=== PATIENT | male | born 1975 | race Caucasian/White ===

== ENCOUNTER 2021-04-08 18:41 | Emergency (ER) | payer OTHER ==
[~2021-04-08] VITALS: Ht 177.8 cm; Wt 145.0 kg
[~2021-04-08 18:41] MED LIST: Bactrim Ds Tab1 EACH PO; CEPH500 PO; CLIN150 PO; Cleocin HCl300 MG PO; ERYT.5TO RIGHTEYE; Percocet 5-3251 EACH PO
== END 2021-04-08 23:25 | disposition home or self-care (01) ==
LOC: ER 18:41
DX: K40.90 Unilateral inguinal hernia, without obstruction or gangrene, not specified as recurrent (principal); F17.210 Nicotine dependence, cigarettes, uncomplicated; Z91.09 Other allergy status, other than to drugs and biological substances
CPT/HCPCS: 76857; 99283; A9270; J1885

== ENCOUNTER 2021-05-17 07:29 | Day surgery (SDC) | payer OTHER ==
[~2021-05-17] VITALS: Ht 177.8 cm; Wt 71.0 kg
[~2021-05-17 07:29] MED LIST changes: +ACET500 PO; +IBUP200 PO
--- NOTE | 2021-05-17 10:42 | NUR ---
05/17/21 Dylan2 Laurence Reynaga NO SPECIMEN PER DR. RODRIGUEZ. WILLIS LOPEZ RN
--- NOTE | 2021-05-17 11:02 | NUR ---
05/17/21 1102 MAYUR MARINOIE WHEN ADMITTED INTO SDU, DENIES PAIN. ENCOURAGED HIM TO EAT CRACKERS SO THAT WHEN HE TAKES PAIN MED, IT WONT BE ON AN EMPTY STOMACH.
== END 2021-05-17 11:40 | disposition home or self-care (01) ==
LOC: ORSCSDS 07:29 → ORD 09:00 → ORSCMMR 09:00 → ORSCSDS 11:40
PROVIDERS: Surgery
PROC: 0YU60JZ Supplement Left Inguinal Region with Synthetic Substitute, Open Approach (ICD-10-PCS; principal; 2021-05-17 09:00)
DX: K40.90 Unilateral inguinal hernia, without obstruction or gangrene, not specified as recurrent (principal); F32.9 Major depressive disorder, single episode, unspecified; F17.210 Nicotine dependence, cigarettes, uncomplicated
CPT/HCPCS: A9270; C1781; J0690; J1100; J2250; J2405; J2704; J3010; J7120